=== PATIENT | male | born 1995 | race Hispanic/Latino ===

== ENCOUNTER → 2020-06-22 | Outpatient (CLI) | payer OTHER ==
[~2020-06-22] MED LIST: IOPAMIDOL 370 MG/ML 200 ML INFUS..BTL INJ ONE; SODIUM CHLORIDE 0.9% 50ML 50 ML ONE
[2020-06-22 09:15] LABS: BASOPHILS # (AUTO) 0.1 (0.0-0.1); BASOPHILS % 0.7 % (0.0-1.0); EOSINOPHILS # (AUTO) 0.3 (0.0-0.4); EOSINOPHILS % 4.5 % (0.0-6.0); HEMATOCRIT 45.4 % (38.2-49.6); HEMOGLOBIN 14.8 g/dL (14.0-18.0); LYMPHOCYTES # (AUTO) 2.5 (1.0-3.2); LYMPHOCYTES % 35.6 % (18.0-39.1); MEAN CORPUSCULAR HEMOGLOBIN 29.1 pg (28-32); MEAN CORPUSCULAR HGB CONC 32.6 g/dL (31-35); MEAN CORPUSCULAR VOLUME 89.4 fL (81-99); MONOCYTES # (AUTO) 0.7 (0.2-0.8); MONOCYTES % 10.1 % (4.4-11.3); NEUTROPHILS # (AUTO) 3.5 (2.1-6.9); NEUTROPHILS % 48.8 % (38.7-80.0); PLATELET COUNT 157 x10e3/uL (140-360); RED BLOOD COUNT 5.08 x10e6/uL (4.3-5.7); RED CELL DISTRIBUTION WIDTH 13.2 % (11.7-14.4)
[2020-06-22 09:24] LABS: ANION GAP 12.7 mmol/L (8-16); BLOOD UREA NITROGEN 11 mg/dL (7-26); BUN/CREATININE RATIO 10 (6-25); CALCIUM 9.3 mg/dL (8.4-10.2); CARBON DIOXIDE 23 mmol/L (22-29); CHLORIDE 107 mmol/L (98-107); CREATININE, SERUM 1.05 mg/dL (0.72-1.25); EST GLOMERULAR FILTRATION RATE > 60 ML/MIN (60-); GLUCOSE 80 mg/dL (74-118); POTASSIUM 3.7 mmol/L (3.5-5.1); SODIUM 139 mmol/L (136-145)
--- NOTE | 2020-06-22 10:09 | Diagnostic Imaging Report ---
EXAM: CT Chest WITH contrast INDICATION: Right axillary mass. COMPARISON: None TECHNIQUE: Chest was scanned utilizing a multidetector helical scanner from the lung apex through the level of the adrenal glands after administration of IV contrast. Coronal and sagittal reformations were obtained. Routine protocol was performed. IV CONTRAST: 100 cc of Isovue-370. RADIATION DOSE: Total DLP: 549 mGy*cm Estimated effective dose: (DLP x 0.014 x size factor) mSv COMPLICATIONS: None FINDINGS: LINES/ TUBES: None. LUNGS AND AIRWAYS: The central airways are patent. There are bilateral multifocal mild groundglass opacities. Partially calcified 7 mm granuloma in the left upper lobe on series 2, image 59. PLEURA: The pleural spaces are clear. HEART AND MEDIASTINUM: The thyroid gland is normal. Right axillary well-circumscribed homogeneous soft tissue mass, measuring up to 6.6 x 7.9 cm. There is a prominent right paratracheal lymph node, measuring up to 1 cm on series 2, image 38. The heart is normal in size.. There is no pericardial effusion. UPPER ABDOMEN: Limited contrast-enhanced views. Diffuse hepatic steatosis. Indeterminate 5 mm hyperdense lesion in the right hepatic lobe on series 2, image 82. Indeterminant additional right hepatic lobe hyperdense lesion measuring 1.4 cm on image 99. BONES: The visualized bony thorax is within normal limits. SOFT TISSUES: Unremarkable. 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 Indeterminate mildly prominent mediastinal lymph nodes. Recommend right axillary mass biopsy for further evaluation. Diffuse hepatic steatosis. Indeterminant two hyperdense lesions in the right hepatic lobe. Recommend follow-up liver protocol MRI or CT for further evaluation. Diffuse mild multifocal groundglass opacities may represent atelectasis or infectious process in the appropriate clinical setting. Signed by: Dr. Cheyanne Mistry MD on 06/22/2020 10:05 AM
== END ==
LOC: CT 08:23
PROVIDERS: ATTEND Surgery
DX: R22.31 Localized swelling, mass and lump, right upper limb (principal); D49.89 Neoplasm of unspecified behavior of other specified sites
CPT/HCPCS: 36415; 71260; 80048; 85025; Q9967

== ENCOUNTER → 2020-06-30 | Outpatient (CLI) | payer OTHER ==
--- NOTE | 2020-06-30 16:28 | Diagnostic Imaging Report ---
PROCEDURE: Ultrasound-guided biopsy Procedural Personnel Attending physician(s): Saumya Dee MD Fellow physician(s): None Resident physician(s): None Advanced practice provider(s): None Pre-procedure diagnosis: Right axillary mass Post-procedure diagnosis: Same Indication: Histopathologic diagnosis Previous biopsy of same target (QCDR): No Additional clinical history: None Complications: No immediate complications. IMPRESSION: Ultrasound-guided biopsy of right axillar mass. Plan: Specimen(s) sent for evaluation. PROCEDURE SUMMARY: - Percutaneous US-guided fine needle aspiration biopsy - Additional procedure(s): None PROCEDURE DETAILS: Pre-procedure Reference imaging for biopsy target: None Consent: Informed consent for the procedure including risks, benefits and alternatives was obtained and time-out was performed prior to the procedure. Preparation: The site was prepared and draped using maximal sterile barrier technique including cutaneous antisepsis. Anesthesia/sedation Level of anesthesia/sedation: No sedation Anesthesia/sedation administered by: Independent trained observer under attending supervision with continuous monitoring of the patient?s level of consciousness and physiologic status Total intra-service sedation time (minutes): NA Imaging prior to biopsy The patient was positioned supine. Initial ultrasound was performed. Biopsy target: - Maximal diameter (cm): 7.9 - Location: Right axilla Other findings: None Biopsy Local anesthesia was administered. Under US guidance, the biopsy needle was advanced to the target and biopsy was performed. Coaxial needle: 17 gauge Core needle biopsy device: Temno Core needle size: 18g Number of core specimens: None, the biopsy needle and introducer were not able to advance into the lesion due to firmness and mobility of the lesion Fine needle aspiration device: Chiba Fine needle size: 22g Number of FNA specimens: 2 Needle removal The biopsy needle was removed and a sterile dressing was applied. Tract embolization: None Imaging following biopsy Immediate post-biopsy ultrasound was performed. Post-biopsy imaging findings: No hematoma Additional Details Additional description of procedure: None Equipment details: None Specimens removed: Biopsy samples as detailed above Estimated blood loss (mL): Less than 10 Standardized report: [email or web address] Attestation Signer name: Saumya Dee MD I attest that I was present for the entire procedure. I reviewed the stored images and agree with the report as written. Signed by: Saumya Dee MD on 06/30/2020 4:24 PM
== END ==
LOC: US 13:24
PROVIDERS: ATTEND Surgery
DX: R22.31 Localized swelling, mass and lump, right upper limb (principal); D49.89 Neoplasm of unspecified behavior of other specified sites
CPT/HCPCS: 10005; 88172; 88173; 88305

== ENCOUNTER 2020-07-22 06:09 | Observation (INO) | payer OTHER ==
[2020-07-22] MEDS ORDERED: BUPIVACAINE 0.25%/EPI 30ML SDV INJ ONE (06:52)
[2020-07-22] MEDS ORDERED: NEOSTIGMINE 1 MG/ML 10ML VIAL ONE (10:27)
[2020-07-22] MEDS ORDERED: HYDROCODONE/APAP 7.5MG-325MG 1 EA TAB PO PRN (10:30)
[2020-07-22] MEDS ORDERED: ONDANSETRON HCL INJ 2MG/ML 2ML 2 MG/ML VIAL IV PRN (10:30)
[2020-07-22] MEDS ORDERED: HYDROMORPHONE 1MG/1ML INJ IV PRN (10:30)
[2020-07-22] MEDS ORDERED: DEXTROSE 5%/LACTATED RINGERS 1,000 ML IV SCH (10:30)
--- OUTSIDE RECORDS SUMMARY | 2020-07-22 11:13 | XMS REPORT | Continuity of Care Document ---
Author Author [facility] t Organization [facility] Address [address] [place] [id number] Phone Unavailable Care Team Providers Care Cytology Technologist Name Role Phone PATTI CELESTE Attphyahmet Unavailable Problems This patient has no known problems. Allergies, Adverse Reactions, Alerts This patient has no known allergies or adverse reactions. Medications This patient has no known medications. Procedures This patient has no known procedures. Results Test Description Test Time Test Comments Results Result Comments Source FNA US GUIDED 1ST LESION 2020-06-30 16:22:[address] [address] Patient Name: SATINDER DIETZ MR #: [id number] : 1995 Age/Sex: 25/M Req #: [id number] Adm Physician: Ordered by: PATTI CELESTE MD Report #: [id number] Location: Room/Bed: Procedure: [id number] IR/FNA US GUIDED 1ST LESION Exam Date: 06/30/20 Exam Time: 1419 REPORT STATUS: Signed PROCEDURE: Ultrasound-guided biopsy Procedural Personnel Attending physician(s): Dianelys Quezada MD Fellow physician(s): None Resident physician(s): None Advanced practice provider(s): None Pre-procedure diagnosis: Right axillary mass Post-proc edure diagnosis: Same Indication: Histopathologic diagnosis Previous biopsy of same target (QCDR): No Additional clinical history: None Complications: No immediate complications. IMPRESSION: Ultrasound- guided biopsy of right axillar mass. Plan: Specimen(s) sent for evaluation. PROCEDURE SUMMARY: - Percutaneous US-guided fine needle aspiration biopsy - Additional procedure(s): None PROCEDURE DETAILS: Pre-procedure Reference imaging for biopsy target: None Consent: Informed consent for the procedure including risks, benefits and alternatives was obtained and time-out was performed prior to the procedure. Preparation: The site was prepared and draped using maximal sterile barrier technique including cutaneous antisepsis. Anesthesia/sedation Level of anesthesia/sedation: No sedation Anesthesia/sedation administered by: Independent trained observer under attending supervision with continuous monitoring of the patient?s level of consciousness and physiologic status Total intra-service sedation time (minutes): NA Imaging prior to biopsy The patient was positioned supine. Initial ultrasound was performed. Biopsy target: - Maximal diameter (cm): 7.9 - Location: Right axilla Other findings: None Biopsy Local anesthesia was administered. Under US guidance, the biopsy needle was advanced to the target and biopsy was performed. Coaxial needle: 17 gauge Core needle biopsy device: Temno Core needle size: 18g Number of core specimens: None, the biopsy needle and introducer were not able to advance into the lesion due to firmness and mobility of the lesion Fine needle aspiration device: Chiba Fine needle size: 22g Number of FNA specimens: 2 Needle removal The biopsy needle was removed and a sterile dressing was applied. Tract embolization: None Imaging following biopsy Immediate post-biopsy ultrasound was performed. Post-biopsy imaging findings: No hematoma Additional Details Additional description of procedure: None Equipment details: None Specimens removed: Biopsy samples as detailed above Estimated blood loss (mL): Less than 10 Standardized report: [email or web address] Attestation Signer name: Dianelys Quezada MD I attest that I was present for the entire procedure. I reviewed the stored images and agree with the report as written. Signed by: Dianelys Quezada MD on 06/30/2020 4:24 PM Dictated By: DIANELYS QUEZADA MD [id number] Transcribed By: GABRIEL on 06/30/204 COPY TO: PATTI CELESTE MD CT CHEST W 2020-06-22 09:43:00 [place] [address] Patient Name: SATINDER LANE MR #: [id number] : 1995 Age/Sex: 25/M Req #: [id number] Adm Physician: Ordered by: PATTI CELESTE MD Report #: [id number] Location: CT Room/Bed: Procedure: [id number] CT/CT CHEST W Exam Date: 06/22/20 Exam Time: 908 REPORT STATUS: Signed EXAM: CT Chest WITH contrast INDICATION: Right axillary mass. COMPARISON: None TECHNIQUE: Chest was scanned utilizing a multidetector helical scanner from the lung apex through the level of the adrenal glands after administration of IV contrast. Coronal and sagittal reformations were obtained. Routine protocol was performed. IV CONTRAST: 100 cc of Isovue-370. RADIATION DOSE: Total DLP: 549 mGy*cm Estimated effective dose: (DLP x 0.014 x size factor) mSv COMPLICATIONS: None FINDINGS: LINES/ TUBES: None. LUNGS AND AIRWAYS: The central airways are patent. There are bilateral mult ifocal mild groundglass opacities. Partially calcified 7 mm granuloma in the left upper lobe on series 2, image 59. PLEURA: The pleural spaces are clear. HEART AND MEDIASTINUM: The thyroid gland is normal. Right axillary well-circumscribed homogeneous soft tissue mass, measuring up to 6.6 x 7.9 cm. There is a prominent right paratracheal lymph node, measuring up to 1 cm on series 2, image 38. The heart is normal in size.. There is no pericardial effusion. UPPER ABDOMEN: Limited contrast-enhanced views. Diffuse hepatic steatosis. Indeterminate 5 mm hyperdense lesion in the right hepatic lobe on series 2, image 82. Indeterminant additional right hepatic lobe hyperdense lesion measuring 1.4 cm on image 99. BONES: The visualized bony thorax is within normal limits. SOFT TISSUES: Unremarkable. 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 Indeterminate mildly prominent mediastinal lymph nodes. Recommend right axillary mass biopsy for further evaluation. Diffuse hepatic steatosis. Indeterminant two hyperdense lesions in the right hepatic lobe. Recommend follow-up liver protocol MRI or CT for further evaluation. Diffuse mild multifocal groundglass opacities may represent atelectasis or infectious process in the appropriate clinical setting. Signed by: Dr. Henna Glez MD on 06/22/2020 10:05 AM Dictated By: HENNA GLEZ MD 1005 Transcribed By: GABRIEL on 06/22/20 1005 COPY TO: PATTI CELESTE MD
--- NOTE | 2020-07-22 12:00 | Operative Report ---
DATE OF PROCEDURE: 07/22/2020 SURGEON: Hernandez Arriaga MD PREOPERATIVE DIAGNOSIS: Large mass of the right axillary region, mental retardation. POSTOPERATIVE DIAGNOSIS: Large mass of the right axillary region, mental retardation, pending final path report. PROCEDURE PERFORMED: Right axillary exploration and lymphadenectomy of the right axilla with excision of very large mass. LOAN BROKER: SAGRARIO Ramires. ESTIMATED BLOOD LOSS: 150 mL. DRAINS: 110 mm flat Radames-Richey drain. COMPLICATIONS: None. INDICATION AND FINDINGS: The patient is a mentally retarded 25-year-old male, who really does not know how long he has had a mass in the right axillary region present. The mass had no pain associated with it because the mass grew to very large size with outer diameter of near 15 cm, he then complained of the mass. When the patient was seen in my office he presented with a very large right axillary mass that was about the size of at least a grape fluid with an outer diameter near [address] scan was then performed to further evaluate the mass and revealed the mass in the right axillary region, there was no indication as to the source of it. I went ahead and requested Interventional Radiology to biopsy the mass and when they attempted to do it, the tip of the biopsy needle bent and they could not obtain any useful tissue. At this point, I had no recourse, but to proceed with exploration of the right axilla. INTRAOPERATIVE FINDINGS: The patient had a large firm somewhat mobile mass that measured about 11 cm in its greatest dimension. The mass appeared to originate from the medial part of the axilla under the pectoralis major on the right. This mass was friable. There was constant oozing throughout the procedure. Because of the oozing and the inflammatory changes around the mass I decided to stay as close to the mass as possible to prevent any damage to the nerves and vessels in the axilla. DESCRIPTION OF PROCEDURE: With the patient lying on the operative table in supine position after administration of general anesthesia, was prepped and draped for right axilla exploration and excision of mass of the right axilla. An incision was made transversely across the mass and the dissection was carried down through the skin, subcutaneous tissues until the mass was identified. Staying very close to the mass, we began the dissection. The vessels were tied off with 2-0 Vicryl 2-0 silk and electrocautery until dissection was proceeded with oozing throughout. It was impossible to try to identify the long thoracic nerve of Pineda and the thoracodorsal nerve due to the inflammation and displacement of the structures and soft tissues by the large mass. We stayed as close to the mass as possible without entry into the capsule until we then mobilized the mass. The mass appeared to originate from the right subpectoral region at level 2. Whether this is a lymph node or some type of neurogenic tumor remains to be seen during the final path report. After we detached the mass we achieved hemostatic via electrocautery and suture and ties with 2-0 Vicryl until we obtain full hemostasis. We then left a 10 mm flat Radames-Richey drain to drain the large cavity there and brought out through a stab wound inferior to the incision and secured it there with 2-0 silk. The wound irrigated after sponge and instrument count was correct. We closed the wound in several layers using 0 chromic for the deeper layers, 2-0 Vicryl for the superficial layers and subcuticular plane and the skin was closed using 3-0 silk. Sterile dressing was applied, drain was connected to self suction. The patient tolerated the procedure well, taken to recovery room in stable condition. The mother was informed of the intraoperative findings. They are aware of the potential risks there are for nerve injury subsequently. MD GERMAIN Paul/AKBAR /[id number]
[2020-07-22 12:10] VITALS: BP 121/85
[2020-07-22] MEDS ORDERED: EPHEDRINE SULFATE INJ 50 MG/ML VIAL ONE (21:32)
[2020-07-22] MEDS ORDERED: PROPOFOL IV EMULSION 10 MG/ML 20 ML VIAL ONE (21:32)
[2020-07-22] MEDS ORDERED: ONDANSETRON HCL INJ 2MG/ML 2ML 2 MG/ML VIAL ONE (21:32)
[2020-07-22] MEDS ORDERED: DEXAMETHASONE SOD PHOS INJ 4 MG/ML VIAL ONE (21:32)
[2020-07-22] MEDS ORDERED: SEVOFLURANE INHAL SOLN 250 ML PEN BTL ONE (21:32)
[2020-07-22] MEDS ORDERED: LIDOCAINE HCL 2% LOCAL INJ 5 ML SDV VIAL INJ ONE (21:32)
[2020-07-22] MEDS ORDERED: MIDAZOLAM HCL 2 MG/2 ML VIAL ONE (21:43)
[2020-07-22] MEDS ORDERED: FENTANYL CITRATE/PF 100MCG/2 ML INJ ONE (21:43)
== END 2020-07-22 12:39 | disposition home or self-care (01) ==
LOC: OR 06:09 → PACU V 10:33
PROVIDERS: ADMIT Surgery; ATTEND Surgery
DX: M72.8 Other fibroblastic disorders (principal); Z01.812 Encounter for preprocedural laboratory examination; Z11.59 Encounter for screening for other viral diseases; F79 Unspecified intellectual disabilities
CPT/HCPCS: 21552; 38525; 88304; 88342; G0378; J1100; J2001; J2250; J2405; J2704; J2710; J3010; U0002